=== PATIENT | female | born 1970 | race Caucasian/White ===

== ENCOUNTER 2018-12-28 21:54 | Inpatient (IN) ==
[2018-12-28] MEDS ORDERED: Sod Chloride 0.9% Inj 1,000 ML IV.SIG ONE (22:48)
[2018-12-28 23:12] LABS: Baso # (Auto) 0.1 th/mm3 (0.0-0.2); Eos # (Auto) 0.4 th/mm3 (0.0-0.4); Eos % (Auto) 4.9 % (0.0-4.0); Hematocrit 36.2 % (35.0-46.0); Hemoglobin 12.6 gm/dL (11.6-15.3); Lymph # (Auto) 2.2 th/mm3 (1.0-4.8); Mean Corpuscular HGB Conc 34.7 % (32.0-36.0); Mean Corpuscular Volume 97.8 fL (80.0-100.0); Mean Platelet Volume 8.6 fL (7.0-11.0); Mono # (Auto) 0.6 th/mm3 (0.0-0.9); Mono % (Auto) 7.5 % (0.0-8.0); Neut # (Auto) 4.2 th/mm3 (1.8-7.7); Neut % (Auto) 56.6 % (16.0-70.0); Platelet Count 210 th/mm3 (150-450); Red Cell Distribution Width 13.7 % (11.6-17.2); White Blood Count 7.4 th/mm3 (4.0-11.0)
[2018-12-28 23:36] LABS: Anion Gap 10 meq/L (5-15); Blood Urea Nitrogen 15 mg/dL (7-18); Calcium 7.1 mg/dL (8.5-10.1); Carbon Dioxide 23.6 meq/L (21.0-32.0); Chloride 114 meq/L (98-107); Glomerular Filtration Rate 84 mL/min (>89); Glucose,Random 157 mg/dL (74-106); Potassium 3.3 meq/L (3.5-5.1); Sodium 148 meq/L (136-145)
[2018-12-28] MEDS ORDERED: Calcium Gluconate Inj 1 GM in Sodium Chlor 0.9% Inj 90 ML IV.SIG ONE (23:37)
--- NOTE | 2018-12-28 23:37 | ED ---
HPI General Chief Complaint: Weakness Stated Complaint: SOB/Evac Time Seen by Provider: 12/28/18 22:21 Source: family (Mother and brother) Mode of arrival: ambulatory Limitations: other (Lethargic) History of Present Illness HPI narrative: 48-year-old female came to the emergency room with history of having 2 [id number] syncopal episodes. Patient appears to be lethargic although trying to give some history. Main history is provided by her mother and her brother who the patient is currently residing with. She has history of breast cancer and just finished her chemotherapy and radiation therapy. She is from [place] and came to live with her family 3 weeks back. Patient flew to [place]. Her family says that she was sitting and watching a movie with her brother. She was fine at that point. He had just stepped into his room and was there for 10 minutes when he heard her screaming for his name. He came out and noticed that she appeared extremely pale with her eyes almost rolling back. She was sitting on the couch with her head flopping back. Later on when patient started to get some consciousness she said that she felt like she was going to pass out and did pass out. After that she woke up and tried to sit up and then passed out again. Currently patient is complaining of chest pain on the left side especially when she takes a deep breath. She describes this pain radiating to her back. Patient is not on any blood thinners. She smokes marijuana. She does not have any cardiac history as per the mother. But her mother had a bypass surgery in 2011 when she was in her 70s. She was slightly hypotensive upon arrival. Patient says the chest pain started after her syncopal episode. No history of PE or DVT in the past. Patient had a stress test couple years back which was negative for Related Data Home Medications Medication Instructions Recorded Confirmed albuterol sulfate 2 inh INHALATION Q4-6H PRN 12/28/18 12/28/18 duloxetine [Cymbalta] 60 mg PO DAILY 12/28/18 12/28/18 levothyroxine 150 mcg PO DAILY 12/28/18 12/28/18 lisinopril 10 mg PO DAILY 12/28/18 12/28/18 pravastatin 40 mg PO DAILY 12/28/18 12/28/18 quetiapine [Seroquel] 25 mg PO DAILY 12/28/18 12/28/18 sotalol 80 mg PO DAILY 12/28/18 12/28/18 tamoxifen 20 mg PO DAILY 12/28/18 12/28/18 Allergies Allergy/AdvReac Type Severity Reaction Status Date / Time No Known Allergies Allergy Verified 12/28/18 22:48 Review of Systems ROS: all other systems reviewed are negative [facility] Medical History Medical History A-fib (Acute) Asthma (Acute) Breast cancer (Acute) Social History Social History Substance History: Active Abuse Second Hand Smoke Exposure: No Smoking Status: Never smoker Tobacco Type: Cigarettes How Often Do You Have a Drink Containing Alcohol: Never Recent Travel in [facility] within the Last 8 Weeks: No Recent Out of Country Travel within the Last 8 Weeks: No Substance Abuse Detail Marijuana: Substance Use Type Other:: MARIJUANA Immunization History Tetanus Immunization: >5 Years Exam Narrative Exam Narrative: GENERAL: Lethargic but trying to answer questions, moderate distress SKIN: Focused skin assessment warm/dry. HEAD: Atraumatic. Normocephalic. EYES: Pupils equal and round. No scleral icterus. No injection or drainage. ENT: No nasal bleeding or discharge. Mucous membranes pink and moist. NECK: Trachea midline. No JVD. CARDIOVASCULAR: Regular rate and rhythm. No murmur appreciated. RESPIRATORY: No accessory muscle use. Clear to auscultation. Breath sounds equal bilaterally. GASTROINTESTINAL: Abdomen soft, non-tender, nondistended. Hepatic and splenic margins not palpable. MUSCULOSKELETAL: No obvious deformities. No clubbing. No cyanosis. No edema. NEUROLOGICAL: GCS of 14. No obvious cranial nerve deficits. Motor grossly within normal limits. Normal speech. PSYCHIATRIC: Appropriate mood and affect; insight and judgment normal. Course Initial Documented Vital Signs Temperature 98.6 F 12/28/18 22:13 Pulse Rate 57 L 12/28/18 22:13 Respiratory Rate 20 12/28/18 22:13 Blood Pressure 110/53 L 12/28/18 22:13 Pulse Oximetry 98 12/28/18 22:13 Last Documented Vital Signs Temperature 98.1 F 12/30/18 08:45 Pulse Rate 63 12/30/18 11:25 Respiratory Rate 14 12/30/18 11:25 Blood Pressure 133/84 12/30/18 08:45 Pulse Oximetry 98 12/30/18 08:45 Medical Decision Making [facility] Narrative Medical decision making narrative: 11:35 PM given her history patient is moderate to high risk factor for PE mostly based on my suspicion. Awaiting for blood test result. Have ordered a CTA pulmonary angiogram. If patient is negative for PE she will be admitted for ACS/syncope. 12:22 AM blood test shows hypocalcemia and hypokalemia. Have ordered for replacement. CT head and CTA pulmonary was negative. Patient will also receive from IV fluid. I would like to admit her for chest pain, syncope. Awaiting for the hospitalist to call back. Medical Screen Exam Complete: Yes Emergency Medical Condition: Yes Lab Data Result diagrams: 12/30/18 07:10 12/30/18 07:10 Lab Results 12/28/18 12/28/18 12/28/18 Range/Units 23:00 23:00 23:00 WBC 7.4 (4.0-11.0) th/mm3 RBC 3.70 L (4.00-5.30) mil/mm3 Hgb 12.6 (11.6-15.3) gm/dL Hct 36.2 (35.0-46.0) % MCV 97.8 (80.0-100.0) fL MCH 34.0 (27.0-34.0) pg MCHC 34.7 (32.0-36.0) % RDW 13.7 (11.6-17.2) % Plt Count 210 (150-450) th/mm3 MPV 8.6 (7.0-11.0) fL Neut % (Auto) 56.6 (16.0-70.0) % Lymph % (Auto) 30.0 (9.0-44.0) % [place] % (Auto) 7.5 (0.0-8.0) % Eos % (Auto) 4.9 H (0.0-4.0) % Baso % (Auto) 1.0 (0.0-2.0) % Neut # (Auto) 4.2 (1.8-7.7) th/mm3 Lymph # (Auto) 2.2 (1.0-4.8) th/mm3 [place] # (Auto) 0.6 (0.0-0.9) th/mm3 Eos # (Auto) 0.4 (0.0-0.4) th/mm3 Baso # (Auto) 0.1 (0.0-0.2) th/mm3 WBC Differential . Differential Comment Auto diff final Sodium 148 H (136-145) meq/L Potassium 3.3 L (3.5-5.1) meq/L Chloride 114 H (98-107) meq/L Carbon Dioxide 23.6 (21.0-32.0) meq/L Anion Gap 10 (5-15) meq/L BUN 15 (7-18) mg/dL Creatinine 0.74 (0.50-1.00) mg/dL Estimated GFR 84 L (>89) mL/min Random Glucose 157 H (74-106) mg/dL Calcium 7.1 L* (8.5-10.1) mg/dL Calcium Adj for Albumin 8.0 L (8.5-10.1) mg/dL Magnesium 1.7 (1.5-2.5) mg/dL Total Bilirubin (0.2-1.0) mg/dL AST (15-37) U/L ALT (10-53) U/L Alkaline Phosphatase (45-117) U/L Troponin I Less than 0.02 L (0.02-0.05) ng/mL Total Protein (6.4-8.2) g/dL Albumin 2.9 L (3.4-5.0) g/dL TSH (0.358-3.740) uIU/mL Urine Color (Yellw/Straw) Urine Clarity (Clear) Urine pH (5.0-8.5) Ur Specific [place] (1.002-1.035) Urine Protein (Neg-Trace) mg/dL Urine Glucose (UA) (Negative) mg/dL Urine Ketones (Negative) mg/dL Urine Occult Blood (Negative) Urine Nitrate (Negative) Urine Bilirubin (Negative) Urine Urobilinogen (Less than 2) mg/dL Ur Leukocyte Esterase (Negative) Urine RBC (0-3) /hpf Urine WBC (0-5) /hpf Ur Squamous Epith Cells (0-5) /hpf Urine Bacteria (None) /hpf Hyaline Casts (0-3) /lpf Urine Mucus (Occasional) /lpf Micro UA Comment Ur Microscopic Review Urine Culture Comments Urine Opiates Screen (Neg) Ur Barbiturates Screen (Neg) Ur Amphetamines Screen (Neg) U Benzodiazepines Scrn (Neg) Urine Cocaine Screen (Neg) U Cannabinoids Screen (Neg) 12/29/18 12/29/18 12/29/18 Range/Units 01:24 01:24 06:40 WBC (4.0-11.0) th/mm3 RBC (4.00-5.30) mil/mm3 Hgb (11.6-15.3) gm/dL Hct (35.0-46.0) % MCV (80.0-100.0) fL MCH (27.0-34.0) pg MCHC (32.0-36.0) % RDW (11.6-17.2) % Plt Count (150-450) th/mm3 MPV (7.0-11.0) fL Neut % (Auto) (16.0-70.0) % Lymph % (Auto) (9.0-44.0) % [place] % (Auto) (0.0-8.0) % Eos % (Auto) (0.0-4.0) % Baso % (Auto) (0.0-2.0) % Neut # (Auto) (1.8-7.7) th/mm3 Lymph # (Auto) (1.0-4.8) th/mm3 [place] # (Auto) (0.0-0.9) th/mm3 Eos # (Auto) (0.0-0.4) th/mm3 Baso # (Auto) (0.0-0.2) th/mm3 WBC Differential Differential Comment Sodium 148 H (136-145) meq/L Potassium 4.4 D (3.5-5.1) meq/L Chloride 118 H (98-107) meq/L Carbon Dioxide 21.7 (21.0-32.0) meq/L Anion Gap 8 (5-15) meq/L BUN 13 (7-18) mg/dL Creatinine 0.60 (0.50-1.00) mg/dL Estimated GFR Greater than 89 (>89) mL/min Random Glucose 97 (74-106) mg/dL Calcium 7.6 L (8.5-10.1) mg/dL Calcium Adj for Albumin (8.5-10.1) mg/dL Magnesium (1.5-2.5) mg/dL Total Bilirubin 0.2 (0.2-1.0) mg/dL AST 11 L (15-37) U/L ALT 18 (10-53) U/L Alkaline Phosphatase 52 (45-117) U/L Troponin I Less than 0.02 L (0.02-0.05) ng/mL Total Protein 5.4 L (6.4-8.2) g/dL Albumin 2.7 L (3.4-5.0) g/dL TSH (0.358-3.740) uIU/mL Urine Color Yellow (Yellw/Straw) Urine Clarity Clear (Clear) Urine pH 6.0 (5.0-8.5) Ur Specific [place] 1.015 (1.002-1.035) Urine Protein Negative (Neg-Trace) mg/dL Urine Glucose (UA) Negative (Negative) mg/dL Urine Ketones Negative (Negative) mg/dL Urine Occult Blood Negative (Negative) Urine Nitrate Negative (Negative) Urine Bilirubin Negative (Negative) Urine Urobilinogen Less than 2 (Less than 2) mg/dL Ur Leukocyte Esterase Negative (Negative) Urine RBC Less than 1 (0-3) /hpf Urine WBC 1 (0-5) /hpf Ur Squamous Epith Cells 1 (0-5) /hpf Urine Bacteria Rare H (None) /hpf Hyaline Casts 4 (0-3) /lpf Urine Mucus Few H (Occasional) /lpf Micro UA Comment Culture not ind Ur Microscopic Review Not Reportable Urine Culture Comments Culture not ind Urine Opiates Screen Neg (Neg) Ur Barbiturates Screen Neg (Neg) Ur Amphetamines Screen Neg (Neg) U Benzodiazepines Scrn Neg (Neg) Urine Cocaine Screen Neg (Neg) U Cannabinoids Screen Pos H (Neg) 12/29/18 12/29/18 12/30/18 Range/Units 06:40 11:54 07:10 WBC 5.5 (4.0-11.0) th/mm3 RBC 3.81 L (4.00-5.30) mil/mm3 Hgb 13.1 (11.6-15.3) gm/dL Hct 38.5 (35.0-46.0) % MCV 101.0 H (80.0-100.0) fL MCH 34.5 H (27.0-34.0) pg MCHC 34.1 (32.0-36.0) % RDW 14.1 (11.6-17.2) % Plt Count 214 (150-450) th/mm3 MPV 8.2 (7.0-11.0) fL Neut % (Auto) 76.5 H (16.0-70.0) % Lymph % (Auto) 17.0 (9.0-44.0) % [place] % (Auto) 5.3 (0.0-8.0) % Eos % (Auto) 0.4 (0.0-4.0) % Baso % (Auto) 0.8 (0.0-2.0) % Neut # (Auto) 4.2 (1.8-7.7) th/mm3 Lymph # (Auto) 0.9 L (1.0-4.8) th/mm3 [place] # (Auto) 0.3 (0.0-0.9) th/mm3 Eos # (Auto) 0.0 (0.0-0.4) th/mm3 Baso # (Auto) 0.0 (0.0-0.2) th/mm3 WBC Differential . Differential Comment Auto diff final Sodium (136-145) meq/L Potassium (3.5-5.1) meq/L Chloride (98-107) meq/L Carbon Dioxide (21.0-32.0) meq/L Anion Gap (5-15) meq/L BUN (7-18) mg/dL Creatinine (0.50-1.00) mg/dL Estimated GFR (>89) mL/min Random Glucose (74-106) mg/dL Calcium 7.6 L (8.5-10.1) mg/dL Calcium Adj for Albumin 8.6 (8.5-10.1) mg/dL Magnesium (1.5-2.5) mg/dL Total Bilirubin (0.2-1.0) mg/dL AST (15-37) U/L ALT (10-53) U/L Alkaline Phosphatase (45-117) U/L Troponin I Less than 0.02 L (0.02-0.05) ng/mL Total Protein (6.4-8.2) g/dL Albumin 2.7 L (3.4-5.0) g/dL TSH 0.698 (0.358-3.740) uIU/mL Urine Color (Yellw/Straw) Urine Clarity (Clear) Urine pH (5.0-8.5) Ur Specific [place] (1.002-1.035) Urine Protein (Neg-Trace) mg/dL Urine Glucose (UA) (Negative) mg/dL Urine Ketones (Negative) mg/dL Urine Occult Blood (Negative) Urine Nitrate (Negative) Urine Bilirubin (Negative) Urine Urobilinogen (Less than 2) mg/dL Ur Leukocyte Esterase (Negative) Urine RBC (0-3) /hpf Urine WBC (0-5) /hpf Ur Squamous Epith Cells (0-5) /hpf Urine Bacteria (None) /hpf Hyaline Casts (0-3) /lpf Urine Mucus (Occasional) /lpf Micro UA Comment Ur Microscopic Review Urine Culture Comments Urine Opiates Screen (Neg) Ur Barbiturates Screen (Neg) Ur Amphetamines Screen (Neg) U Benzodiazepines Scrn (Neg) Urine Cocaine Screen (Neg) U Cannabinoids Screen (Neg) 12/30/18 Range/Units 07:10 WBC (4.0-11.0) th/mm3 RBC (4.00-5.30) mil/mm3 Hgb (11.6-15.3) gm/dL Hct (35.0-46.0) % MCV (80.0-100.0) fL MCH (27.0-34.0) pg MCHC (32.0-36.0) % RDW (11.6-17.2) % Plt Count (150-450) th/mm3 MPV (7.0-11.0) fL Neut % (Auto) (16.0-70.0) % Lymph % (Auto) (9.0-44.0) % [place] % (Auto) (0.0-8.0) % Eos % (Auto) (0.0-4.0) % Baso % (Auto) (0.0-2.0) % Neut # (Auto) (1.8-7.7) th/mm3 Lymph # (Auto) (1.0-4.8) th/mm3 [place] # (Auto) (0.0-0.9) th/mm3 Eos # (Auto) (0.0-0.4) th/mm3 Baso # (Auto) (0.0-0.2) th/mm3 WBC Differential Differential Comment Sodium 144 (136-145) meq/L Potassium 4.0 (3.5-5.1) meq/L Chloride 113 H (98-107) meq/L Carbon Dioxide 23.2 (21.0-32.0) meq/L Anion Gap 8 (5-15) meq/L BUN 8 (7-18) mg/dL Creatinine 0.52 (0.50-1.00) mg/dL Estimated GFR Greater than 89 (>89) mL/min Random Glucose 127 H (74-106) mg/dL Calcium 8.3 L (8.5-10.1) mg/dL Calcium Adj for Albumin (8.5-10.1) mg/dL Magnesium (1.5-2.5) mg/dL Total Bilirubin 0.2 (0.2-1.0) mg/dL AST 19 (15-37) U/L ALT 18 (10-53) U/L Alkaline Phosphatase 59 (45-117) U/L Troponin I (0.02-0.05) ng/mL Total Protein 6.3 L D (6.4-8.2) g/dL Albumin 3.1 L (3.4-5.0) g/dL TSH (0.358-3.740) uIU/mL Urine Color (Yellw/Straw) Urine Clarity (Clear) Urine pH (5.0-8.5) Ur Specific [place] (1.002-1.035) Urine Protein (Neg-Trace) mg/dL Urine Glucose (UA) (Negative) mg/dL Urine Ketones (Negative) mg/dL Urine Occult Blood (Negative) Urine Nitrate (Negative) Urine Bilirubin (Negative) Urine Urobilinogen (Less than 2) mg/dL Ur Leukocyte Esterase (Negative) Urine RBC (0-3) /hpf Urine WBC (0-5) /hpf Ur Squamous Epith Cells (0-5) /hpf Urine Bacteria (None) /hpf Hyaline Casts (0-3) /lpf Urine Mucus (Occasional) /lpf Micro UA Comment Ur Microscopic Review Urine Culture Comments Urine Opiates Screen (Neg) Ur Barbiturates Screen (Neg) Ur Amphetamines Screen (Neg) U Benzodiazepines Scrn (Neg) Urine Cocaine Screen (Neg) U Cannabinoids Screen (Neg) Imaging Data Radiologist's impression: Chest CTA 12/28/18 22:48 CONCLUSION: 1. No acute intrathoracic abnormality. 2. Prior granulomatous disease. Head CT 12/28/18 22:48 CONCLUSION: 1. Negative CT Head non contrast. . . Carotid Doppler Study 12/29/18 00:00 CONCLUSION: 1. Right Internal Carotid Artery: No significant stenosis or atherosclerotic plaque is visualized. 2. Left Internal Carotid Artery: No significant stenosis or atherosclerotic plaque is visualized. ECG Data Attestation: I personally reviewed and interpreted this ECG as follows: Interpretation: Twelve-lead EKG was reviewed by me. Normal sinus rhythm, normal axis, bradycardia, anterior lateral ST depression and T wave inversion. Heart rate of 48 bpm. Discharge Plan Discharge Disposition Patient Disposition: ED Admit(ED Internal Use Only) Discharge Condition Condition: Stable Discharge Order Discharge Orders: Discharge Order (Routine); Ordered 12/30/18 Ordered By: Didi Ku ED Use Only Admit Order (Routine); Ordered 12/29/18 Ordered By: Jas Warren Discharge Details Anticipated Discharge Date: 12/30/18 Physicians Team ED Provider: Jas Warren Primary Care Provider: Primary Care Georgiana Mcleod Attending Provider: Didi Ku Status ED Status: Left Department Discharge Information Discharge Date/Time: 12/29/18 04:07
[2018-12-28 23:51] LABS: Albumin 2.9 g/dL (3.4-5.0)
--- NOTE | 2018-12-29 00:15 | CT ---
EXAM DATE: 12/29/2018 12:10 AM EST AGE/SEX: 48 years / Female INDICATIONS: Syncope. CLINICAL DATA: This is the patient's initial encounter. Patient reports that signs and symptoms have been present for 1 day and indicates a pain score of 0/10. MEDICAL/SURGICAL HISTORY: Carcinoma, breast. Asthma. Atrial fibrillation None. RADIATION DOSE: 56.35 CTDI (mGy) COMPARISON: No prior exams available for comparison. TECHNIQUE: CT of the head without contrast. Using automated exposure control and adjustment of the mA and/or kV according to patient size, radiation dose was kept as low as reasonably achievable to ob tain optimal diagnostic quality images. DICOM format image data is available electronically for revi ew and comparison. FINDINGS: Cerebrum: The ventricles are normal for age. No evidence of midline shift, mass lesion, hemorrhage or acute infarction. No extraaxial fluid collections are seen. Posterior Fossa: The cerebellum and brainstem are intact. The 4th ventricle is midline. The cerebe llopontine angle is unremarkable. Extracranial: The visualized portion of the orbits is intact. Skull: The calvaria is intact. No evidence of skull fracture. CONCLUSION: 1. Negative CT Head non contrast. . . Electronically signed by: Crescencio Epps MD Board Certified Radiologist 12/29/2018 12:14 AM EST
--- NOTE | 2018-12-29 00:18 | CT ---
EXAM DATE: 12/29/2018 12:10 AM EST AGE/SEX: 48 years / Female INDICATIONS: Shortness of breath; rule out pulmonary embolus. CLINICAL DATA: This is the patient's initial encounter. Patient reports that signs and symptoms have been present for 1 day and indicates a pain score of 0/10. MEDICAL/SURGICAL HISTORY: Carcinoma, breast. Asthma. Atrial fibrillation None. RADIATION DOSE: 10.45 CTDI (mGy) COMPARISON: No prior exams available for comparison. TECHNIQUE: Volumetric scanning was performed using a multi-row detector CT scanner during bolus infu sin of 72 ml Omnipaque 350 (iohexol) nonionic water-soluble contrast as a single exam dose. The diane a was post processed with a variety of visualization algorithms including full volume maximum intensi ty projection and sliding thin slab reformation. Using automated exposure control and adjustment of t he mA and/or kV according to patient size, radiation dose was kept as low as reasonably achievable to obtain optimal diagnostic quality images. DICOM format image data is available electronically for r eview and comparison. FINDINGS: Pulmonary Arteries: No filling defects are seen in the pulmonary arteries out to the subsegmental ve ssels. The left and right pulmonary arteries are normal in diameter. Lung: Area of scarring involving the left upper lobe anteriorly. There is associated focal bronchiec tasis within this area as well. No acute infiltrates. No other bronchiectasis. No mass. Calcified gra nulomas involving the left lower lobe. Minimal atelectasis posteriorly within the right base. Effusion: None. Mediastinum: No evidence of mediastinal or hilar adenopathy. Other: The axilla is unremarkable. CONCLUSION: 1. No acute intrathoracic abnormality. 2. Prior granulomatous disease. Electronically signed by: Crescencio Epps MD Board Certified Radiologist 12/29/2018 12:17 AM EST
[2018-12-29] MEDS ORDERED: Sod Chloride 0.9% Inj 1,000 ML IV.SIG SCH (00:30)
[2018-12-29] MEDS ORDERED: Ketorolac Inj 30 MG/ML (IVP) Vial IV.PUSH ONE (00:32)
[2018-12-29] MEDS ORDERED: Bisacodyl 10 MG Supp RECTAL PRN (01:01)
[2018-12-29] MEDS ORDERED: Acetaminophen 325 MG Tablet PO PRN (01:01)
[2018-12-29] MEDS ORDERED: Sod Chloride 0.9% Inj 1,000 ML IV.CONT SCH (01:15)
[2018-12-29 01:42] LABS: Bacteria,Urine Rare /hpf; Bilirubin,Urine Negative (Negative); Clarity,Urine Clear (Clear); Color,Urine Yellow (Yellw/Straw); Glucose,Urine (UA) Negative (Negative); Hyaline Casts,Urine 4 /lpf (0-3); Leukocyte Esterase,Urine Negative (Negative); Mucus,Urine Few /lpf (Occasional); Nitrite,Urine Negative (Negative); Specific Gravity,Urine 1.015 (1.002-1.035); Squamous Epithelial Cell,Urine 1 /hpf (0-5)
[2018-12-29 01:47] LABS: Amphetamine Screen,Urine Neg (Neg); Barbiturate Screen,Urine Neg (Neg); Cannabinoid Screen,Urine Pos (Neg); Cocaine Screen,Urine Neg (Neg)
[2018-12-29 01:49] LABS: Opiate Screen,Urine Neg (Neg)
--- NOTE | 2018-12-29 02:47 | P.HPIM ---
History of Present Illness Primary Care Physician: No Primary Care Physician History of Present Illness: This is a 48-year-old female with a PMH of HTN, Hyperlipidemia, Anxiety, Hypothyroidism and Breast CA who was brought to the ER after syncope x2. Pt initially arrived lethargic, however now back to baseline. States she has Stage IB Breast CA, recently completed Chemo/ Radiation in [place] and moved here to live w/ family approx 3wks ago. Today had episode of lightheadedness followed by syncope x2 witnessed by family. Also c/ o chest pain, substernal, severe, 910, w/ radiation to back. On arrival, BP 110/53, HR 57, O2 sat 98% on RA, Afebrile. CBC unremarkable. Na 148. K+ 3.3. GFR 84. Calcium 7.1. Troponin negative. UA negative for UTI. UDS positive for Marijuana. CT Head with no acute findings. CTA Chest negative for PE. Diagnosis (1) Syncope: (2) Hypocalcemia: (3) Hypokalemia: (4) Breast CA: (5) Chest pain: Inpatient Certification Inpatient Certification: I certify that the inpatient services were ordered in accordance with Medicare regulations governing the order. This includes certification that hospital inpatient services are reasonable and necessary and in the case of services not specified as inpatient-only under 42 CFR 419.22(n), that they are appropriately provided as inpatient services in accordance to with the 2-midnight benchmark under 43 CFR 412.3(e) Estimated Total Length of Stay (Days): 2 Plans for Post Hospital Care: Not yet determined Review of Systems PAST FAMILY HISTORY: Reviewed. No h/o DM or CAD Review of Systems: all other systems reviewed are negative FOR[facility]LY [facility] Medical History Medical History A-fib (Acute) Asthma (Acute) Breast cancer (Acute) Social History Social History Substance History: Active Abuse Smoking Status: Former smoker Tobacco Type: Cigarettes How Often Do You Have a Drink Containing Alcohol: Monthly or less Recent Travel in [facility] within the Last 8 Weeks: No Recent Out of Country Travel within the Last 8 Weeks: No Substance Abuse Detail Marijuana: Substance Use Type Other:: MARIJUANA Immunization History Tetanus Immunization: >5 Years Medications and Allergies Allergies Allergy/AdvReac Type Severity Reaction Status Date / Time No Known Allergies Allergy Verified 12/28/18 22:48 Home Medications Medication Instructions Recorded Confirmed Type albuterol sulfate 2 inh INHALATION Q4-6H PRN 12/28/18 12/28/18 History duloxetine [Cymbalta] 60 mg PO DAILY 12/28/18 12/28/18 History levothyroxine 150 mcg PO DAILY 12/28/18 12/28/18 History lisinopril 10 mg PO DAILY 12/28/18 12/28/18 History pravastatin 40 mg PO DAILY 12/28/18 12/28/18 History quetiapine [Seroquel] 25 mg PO DAILY 12/28/18 12/28/18 History sotalol 80 mg PO DAILY 12/28/18 12/28/18 History tamoxifen 20 mg PO DAILY 12/28/18 12/28/18 History Active Medications: Active Medications Acetaminophen (Tylenol) 650 mg PO Q4H PRN PRN Reason: Temp > 100.4 Al Hydroxide/Mg Hydroxide (Milk Of Magnesia Liq) 30 ml PO Q12H PRN PRN Reason: Mild Constipation Bisacodyl (Dulcolax Supp) 10 mg RECTAL DAILY PRN PRN Reason: SEVERE CONSITIPATION Duloxetine HCl (Cymbalta) 60 mg PO DAILY [facility] Sodium Chloride (Ns Inj) 1,000 mls @ 100 mls/hr IV.CONT .Q10H [facility] Last Admin: 12/29/18 01:58 Dose: 100 mls/hr Lactulose (Lactulose Liq) 30 ml PO DAILY PRN PRN Reason: SEVERE CONSITIPATION Levothyroxine Sodium (Synthroid) 150 mcg PO DAILY@0600 [facility] Morphine Sulfate (Morphine Inj) 2 mg IV.PUSH Q4H PRN PRN Reason: PAIN SCALE 6 TO 10 Ondansetron HCl (Zofran Inj) 4 mg IV.PUSH Q6H PRN PRN Reason: NAUSEA OR VOMITING Pravastatin Sodium (Pravachol) 40 mg PO DAILY [facility] Quetiapine Fumarate (Seroquel) 25 mg PO DAILY [facility] Senna/Docusate Sodium (Joi-Colace) 1 tab PO BID [facility] Sennosides (Senokot) 17.2 mg PO Q12H PRN PRN Reason: Moderate Constipation Sodium Chloride (Ns Flush) 2 ml IV.FLUSH BID [facility] Sodium Chloride (Ns Flush) 2 ml IV.FLUSH PRN PRN PRN Reason: FLUSH AFTER USING IV ACCESS Sotalol HCl (Betapace) 80 mg PO DAILY [facility] Tamoxifen Citrate (Nolvadex) 20 mg PO DAILY [facility] Physical Exam Vital signs: Vital Signs 12/28/18 22:13 12/29/18 01:20 12/29/18 02:02 Temperature 98.6 F Pulse Rate 57 L 62 60 Respiratory Rate 20 14 14 Blood Pressure 110/53 L 120/76 127/76 Pulse Oximetry 98 98 98 Intake & Output 12/28/18 12/28/18 12/29/18 06:59 18:59 06:59 Intake Total 2099 Balance 2099 Weight 90.718 kg Intake: IV 2099 Calcium Gluconate Inj 1 GM In 100 / 100 NS Inj 90 ML @ 100 mls/hr IV. SIG ONCE ONE Rx#:[id number] NS Inj 1,000 ML @ 1000 mls/hr 1999 IV.SIG BOLUS CARMELA Rx#:[id number] Narrative: PE: GENERAL: Middle-aged white female in mild distress, tearful, anxious SKIN: Focused skin assessment warm and dry. +sunburn HEENT: PERRLA, EOMI. No scleral icterus or conjunctival pallor. No lid lag or facial droop. CARDIOVASCULAR: Regular rate and rhythm. No obvious murmurs to auscultation. No chest tenderness to palpation. RESPIRATORY: No obvious rhonchi or wheezing. Clear to auscultation. Breath sounds equal bilaterally. GASTROINTESTINAL: Abdomen soft, non-tender, nondistended. BS normal. MUSCULOSKELETAL: Extremities without clubbing, cyanosis, or edema. No obvious deformities. NEUROLOGICAL: Awake, alert and oriented x4. No focal neurologic deficits. Moving both upper and lower extremities spontaneously. PSYCHIATRIC: Appropriate mood and affect. Insight and judgment normal. Results Labs CBC & Chem 7: 12/28/18 23:00 12/28/18 23:00 Imaging Impressions Chest CTA 12/28/18 22:48 CONCLUSION: 1. No acute intrathoracic abnormality. 2. Prior granulomatous disease. Head CT 12/28/18 22:48 CONCLUSION: 1. Negative CT Head non contrast. . . Caprini VTE Risk Assessment Caprini VTE Risk Assessment: No/Low Risk (score <= 1) Caprini Risk Assessment Model: Point Value = 1 Point Value = 2 Point Value = 3 Point Value = 5 Age 41-60 Minor surgery BMI > 25 kg/m2 Swollen legs Varicose veins or History of unexplained or recurrent spontaneous Oral contraceptives or hormone replacement Sepsis (< 1 month) Serious lung disease, including pneumonia (< 1 month) Abnormal pulmonary function Acute myocardial infarction Congestive heart failure (< 1 month) History of inflammatory bowel disease Medical patient at bed rest Age 61-74 Arthroscopic surgery Major open surgery (> 45 min) Laparoscopic surgery (> 45 min) Malignancy Confined to bed (> 72 hours) Immobilizing plaster cast Central venous access Age >= 75 History of VTE Family history of VTE Factor V Leiden Prothrombin [id number] Lupus anticoagulant Anticardiolipin antibodies Elevated serum homocysteine Heparin-induced thrombocytopenia Other congenital or acquired thrombophilia Stroke (< 1 month) Elective arthroplasty Hip, pelvis, or leg fracture Acute spinal cord injury (< 1 month) Prophylaxis Regimen: Total Risk Factor Score Risk Level Prophylaxis Regimen 0-1 Low Early ambulation 2 Moderate Order ONE of the following: *Sequential Compression Device (SCD) *Heparin 5000 units SQ BID 3-4 Higher Order ONE of the following medications: *Heparin 5000 units SQ TID *Enoxaparin/Lovenox 40 mg SQ daily (WT < 150 kg, CrCl > 30 mL/min) *Enoxaparin/Lovenox 30 mg SQ daily (WT < 150 kg, CrCl > 10-29 mL/min) *Enoxaparin/Lovenox 30 mg SQ BID (WT < 150 kg, CrCl > 30 mL/min) AND/OR *Sequential Compression Device (SCD) 5 or more Highest Order ONE of the following medications: *Heparin 5000 units SQ TID (Preferred with Epidurals) *Enoxaparin/Lovenox 40 mg SQ daily (WT < 150 kg, CrCl > 30 mL/min) *Enoxaparin/Lovenox 30 mg SQ daily (WT < 150 kg, CrCl > 10-29 mL/min) *Enoxaparin/Lovenox 30 mg SQ BID (WT < 150 kg, CrCl > 30 mL/min) AND *Sequential Compression Device (SCD) Assessment and Plan (1) Syncope: Code(s): R55 - Syncope and collapse Status: Acute (2) Hypocalcemia: Code(s): E83.51 - Hypocalcemia Status: Acute (3) Hypokalemia: Code(s): E87.6 - Hypokalemia Status: Acute (4) Breast CA: Code(s): C50.919 - Malignant neoplasm of unspecified site of unspecified female breast Status: Acute (5) Chest pain: Code(s): R07.9 - Chest pain, unspecified Status: Acute Plan A/P: 1. Syncope: likely vasovagal event, BP 60/44 per EMS s/p IVF w/ improvement, admit for further eval, telemetry, initial trop negative, check serial cardiac enzymes to eval for ischemia, check Echo to eval for valvular abnormality/ cardiomyopathy w/ previous radiation for Breast Ca, CTA Chest negative for PE. IVF for hydration. 2. Chest Pain: c/o chest pain w/ radiation to back, CTA chest negative for PE , trop negative, check cardiac enzymes, analgesics/antiemetics as needed. 3. Hypocalcemia: w/ associated weakness, Ca 7.1, s/p replacement, will recheck and replace as needed. 4. Hypokalemia: K+ 3.3, s/p replacement, will recheck and give additional replacement as needed. 5. Breast CA: Stage IB, s/p chemo/radiation in [place], continue home Tamoxifen. 6. DVT Prophylaxis: SCD/Teds 7. Social work for d/c planning as needed 8. Case discussed w/ ER physician at length, labs/records/imaging reviewed by me.
[2018-12-29] MEDS: Morphine Inj 4 MG/ML Vial IV.PUSH PRN ×5 (03:40→21:42)
[2018-12-29] MEDS: QUEtiapine 25 MG Tablet PO SCH ×2 (03:40→09:32)
[2018-12-29] MEDS: Levothyroxine 150 MCG Tablet PO SCH (05:57)
[2018-12-29] MEDS ORDERED: QUEtiapine 25 MG Tablet PO SCH (09:00)
[2018-12-29 09:04] LABS: Alanine Aminotransferase 18 U/L (10-53); Albumin 2.7 g/dL (3.4-5.0); Alkaline Phosphatase 52 U/L (45-117); Anion Gap 8 meq/L (5-15); Aspartate Aminotransferase 11 U/L (15-37); Blood Urea Nitrogen 13 mg/dL (7-18); Calcium 7.6 mg/dL (8.5-10.1); Carbon Dioxide 21.7 meq/L (21.0-32.0); Chloride 118 meq/L (98-107); Glomerular Filtration Rate Greater Than 89 mL/min (>89); Glucose,Random 97 mg/dL (74-106); Potassium 4.4 meq/L (3.5-5.1); Sodium 148 meq/L (136-145); Total Protein 5.4 g/dL (6.4-8.2)
[2018-12-29 09:30] LABS: Albumin 2.7 g/dL (3.4-5.0); Calcium 7.6 mg/dL (8.5-10.1); Calcium-Albumin Corrected 8.6 mg/dL (8.5-10.1)
[2018-12-29] MEDS: Duloxetine 60 MG DR Capsule PO SCH (09:31)
[2018-12-29] MEDS: Senna/Docusate Sodium 8.6/50 MG Tablet PO SCH ×2 (09:32→20:32)
--- NOTE | 2018-12-29 09:45 | P.PNIM ---
Subjective Interval history: patietn awake and alert denies any chest pains or shortness of breath- on exam though with some wheezing no cough appearsanxious- stress out - found out yared of 20 years has been cheating on her but patient states [employer] [facility] denies any diarrhea telemetry- in SR history of HAD- - previous asmoker quit 3 years ago- takes albuterol MDI 2 puss prn not on maintenance steroids hsitory of hypothyroidism , hyperlipidemia, hypertension on Seroquel 50 mg dbid, Pravastatin 40 mg hs, Lisinorpil, sotalol 80 mg daily, synthroid we will restart meds active marijuana use- "to calm my nerves" Physical Exam Vital signs: Vital Signs 12/28/18 22:13 12/29/18 01:20 12/29/18 02:02 Temperature 98.6 F Pulse Rate 57 L 62 60 Respiratory Rate 20 14 14 Blood Pressure 110/53 L 120/76 127/76 Pulse Oximetry 98 98 98 12/29/18 03:35 12/29/18 04:00 12/29/18 08:00 Temperature 95.2 F L 98.7 F Pulse Rate 57 L 55 L 70 Respiratory Rate 20 20 Blood Pressure 112/64 129/74 Pulse Oximetry 95 95 Intake & Output 12/28/18 12/29/18 12/29/18 18:59 06:59 18:59 Intake Total 2099 Balance 2099 Weight 105.9 kg Intake: IV 2099 Calcium Gluconate Inj 1 GM In 100 / 100 NS Inj 90 ML @ 100 mls/hr IV. SIG ONCE ONE Rx#:[id number] NS Inj 1,000 ML @ 1000 mls/hr 1999 IV.SIG BOLUS CARMELA Rx#:[id number] Other: Weight On Admission 105.9 kg Narrative: awake and alert in SR- good sats at room air, appears ancious anicteric neck supple throat no exudates lungs- few inspiratory wheez,es + rhnchis regular rhythm' abdome-softmnontender extrmeites jay ana Results Labs CBC & Chem 7: 12/30/18 07:10 12/30/18 07:10 Imaging Imaging: Impressions Chest CTA 12/28/18 22:48 CONCLUSION: 1. No acute intrathoracic abnormality. 2. Prior granulomatous disease. Head CT 12/28/18 22:48 CONCLUSION: 1. Negative CT Head non contrast. . . Assessment and Plan (1) Syncope: Code(s): R55 - Syncope and collapse Status: Acute (2) Hypocalcemia: Code(s): E83.51 - Hypocalcemia Status: Acute (3) Hypokalemia: Code(s): E87.6 - Hypokalemia Status: Acute (4) Breast CA: Code(s): C50.919 - Malignant neoplasm of unspecified site of unspecified female breast Status: Acute (5) Chest pain: Code(s): R07.9 - Chest pain, unspecified Status: Acute Plan 48 years old female patient states witnessed syncope x 2 Syncope: likely vasovagal event, BP 60/44 per EMS s/p IVF w/ improvement, admit for further eval, telemetry, initial trop negative, check serial cardiac enzymes to eval for ischemia, check Echo to eval for valvular abnormality/ cardiomyopathy w/ previous radiation for Breast Ca, CTA Chest negative for PE. IVF for hydration. check c arotid US Chest Pain: c/o chest pain w/ radiation to back, CTA chest negative for PE, trop negative, check cardiac enzymes, analgesics/antiemetics as needed. History of hypertension History of hyperlipdemia - reporiccible on exam. EKG reviewed- no acute changes, - some psych component -restart home meds - Sotalol, Lisnopril Hypernatremia- start D5W 42 cc/hr Bipolar disorder - continue on her Seroquel -foud out cheating on her- denies any suicidal ideations -states good family support Hypocalcemia: w/ associated weakness, Ca 7.1, s/p replacement, will recheck and replace as needed. Hypokalemia: improved Breast CA: Stage IB, s/p chemo/radiation in [place], continue home Tamoxifen. HAD- provoke by emotional distress likelu -some wheezes on exam - denies smokimg- admits to marijuana use - short course po Prednisone - start MDIs DVT Prophylaxis: SCD/Teds up and ambulate Progress Note: Quality VTE Deep Vein Thrombosis/Pulmonary Embolism Present on Admission: No
[2018-12-29] MEDS: Dextrose 5% in Water Inj 1,000 ML IV.CONT SCH (11:05)
--- NOTE | 2018-12-29 11:16 | ECHRPT ---
Indication: CARDIOMYOPATHY CONCLUSIONS Normal left ventricular size. Wall thickness is normal. The left ventricular systolic function is low normal with an estimated ejection fraction in the rang e of 50- 55%. BP: / HR: Rhythm: MEASUREMENTS (Male / Female) Normal Values Technical Quality: 2D ECHO LV Diastolic Diameter PLAX 4.8 cm 4.2 - 5.9 / 3.9 - 5.3 cm LV Systolic Diameter PLAX 3.7 cm IVS Diastolic Thickness 1.1 cm 0.6 - 1.0 / 0.6 - 0.9 cm LVPW Diastolic Thickness 0.8 cm 0.6 - 1.0 / 0.6 - 0.9 cm LV Relative Wall Thickness 0.4 RV Internal Dim ED PLAX 2.1 cm LA Systolic Diameter LX 4.0 cm 3.0 - 4.0 / 2.7 - 3.8 cm DOPPLER Mitral E Point Velocity 103.0 cm/s Mitral A Point Velocity 76.8 cm/s Mitral E to A Ratio 1.3 TR Peak Velocity 252.0 cm/s TR Peak Gradient 25.4 mmHg Right Atrial Pressure 10.0 mmHg Pulmonary Artery Systolic Pressu 35.4 mmHg Right Ventricular Systolic Press 35.4 mmHg FINDINGS LEFT VENTRICLE Normal left ventricular size. Wall thickness is normal. The left ventricular systolic function is low normal with an estimated ejection fraction in the rang e of 50- 55%. RIGHT VENTRICLE Normal right ventricular size and systolic function. LEFT ATRIUM The left atrial size is normal. RIGHT ATRIUM The right atrial size is normal. ATRIAL SEPTUM Atrial septal bowingt (benign finding). AORTA The aortic root and proximal ascending aorta are normal in size on limited imaging. MITRAL VALVE Structurally normal mitral valve. No mitral valve stenosis or regurgitation. AORTIC VALVE Trileaflet aortic valve. No aortic valve stenosis or regurgitation. TRICUSPID VALVE Structurally normal tricuspid valve. No tricuspid valve stenosis or regurgitation. PULMONARY VALVE No pulmonary valve regurgitation or stenosis. VESSELS The inferior vena cava is normal in size. PERICARDIUM No pericardial effusion. Logan Ramos MD (Electronically Signed) Final Date:29 December 2018 11:15
[2018-12-29 12:50] LABS: Thyroid Stimulating Hormone 0.698 uIU/mL (0.358-3.740)
[2018-12-29] MEDS: Beclomethasone Dipropionate 80 MCG/ACT 10.6 GM Inhaler INH SCH ×2 (13:26→20:32)
--- NOTE | 2018-12-29 14:27 | US ---
EXAM DATE: 12/29/2018 2:18 PM EST AGE/SEX: 48 years / Female INDICATIONS: Syncope. CLINICAL DATA: This is the patient's initial encounter. Patient reports that signs and symptoms have been present for 1 day and indicates a pain score of 0/10. MEDICAL/SURGICAL HISTORY: . Hypertension. Hyperlipidemia. Hypothyroidism. Atrial fibrillatio n. Asthma. Breast cancer. Chemo and radiation therapy. Former smoker. None. COMPARISON: No prior exams available for comparison. VELOCITY PARAMETERS: ICA/CCA Ratio: Right 1.2 , Left 1.3 ICA: Right 112.3 cm/sec, Left 110.3 cm/sec CCA: Right 93.5 cm/sec, Left 86.7 cm/sec ECA: Right 75.8 cm/sec, Left 63.3 cm/sec Vertebral: Right 41.7 cm/sec antegrade, Left 55.5 cm/sec antegrade FINDINGS: Right Carotid: No significant plaque is visualized.The waveforms are within normal limits. Left Carotid: No significant plaque is visualized. The waveforms are within normal limits. Other: None. CONCLUSION: 1. Right Internal Carotid Artery: No significant stenosis or atherosclerotic plaque is visualized. 2. Left Internal Carotid Artery: No significant stenosis or atherosclerotic plaque is visualized. Electronically signed by: Dayne Sevilla MD Board Certified Radiologist 12/29/2018 2:26 PM EST
--- NOTE | 2018-12-29 18:28 | ECG ---
Date Performed: 12/29/2018 Time Performed: 00:25:44 PTAGE: 48 years EKG: Sinus rhythm WITH SINUS ARRHYTHMIA WITH FIRST DEGREE AV BLOCK MODERATE INTRAVENTRICULAR CONDUCTION DELAY MODERATE T-WAVE ABNORMALITY ABNORMAL ECG PREVIOUS TRACING : 12/28/2018 22.16 Compared to previous tracing, rate faster DOCTOR: Talib Navarro Interpretating Date/Time 12/29/2018 18:27:05
[2018-12-29] MEDS: predniSONE 20 MG Tablet PO SCH (20:31)
--- NOTE | 2018-12-29 20:54 | ECG ---
Date Performed: 12/28/2018 Time Performed: 22:16:00 PTAGE: 48 years EKG: SINUS BRADYCARDIA WITH SINUS ARRHYTHMIA MODERATE INTRAVENTRICULAR CONDUCTION DELAY MODERATE T-WAVE ABNORMALITY ABNORMAL ECG NO PREVIOUS TRACING DOCTOR: Talib Navarro Interpretating Date/Time 12/29/2018 20:52:19
[2018-12-30] MEDS: Dextrose 5% in Water Inj 1,000 ML IV.CONT SCH (00:06)
[2018-12-30] MEDS: Morphine Inj 4 MG/ML Vial IV.PUSH PRN ×2 (05:18→09:15)
[2018-12-30] MEDS: Levothyroxine 150 MCG Tablet PO SCH (05:19)
[2018-12-30 08:30] LABS: Baso % (Auto) 0.8 % (0.0-2.0); Eos % (Auto) 0.4 % (0.0-4.0); Hematocrit 38.5 % (35.0-46.0); Hemoglobin 13.1 gm/dL (11.6-15.3); Lymph # (Auto) 0.9 th/mm3 (1.0-4.8); Mean Corpuscular HGB Conc 34.1 % (32.0-36.0); Mean Corpuscular Hemoglobin 34.5 pg (27.0-34.0); Mean Platelet Volume 8.2 fL (7.0-11.0); Mono # (Auto) 0.3 th/mm3 (0.0-0.9); Mono % (Auto) 5.3 % (0.0-8.0); Neut # (Auto) 4.2 th/mm3 (1.8-7.7); Neut % (Auto) 76.5 % (16.0-70.0); Platelet Count 214 th/mm3 (150-450); Red Blood Count 3.81 mil/mm3 (4.00-5.30); Red Cell Distribution Width 14.1 % (11.6-17.2); White Blood Count 5.5 th/mm3 (4.0-11.0)
[2018-12-30 08:36] LABS: Alanine Aminotransferase 18 U/L (10-53); Albumin 3.1 g/dL (3.4-5.0); Anion Gap 8 meq/L (5-15); Aspartate Aminotransferase 19 U/L (15-37); Blood Urea Nitrogen 8 mg/dL (7-18); Calcium 8.3 mg/dL (8.5-10.1); Carbon Dioxide 23.2 meq/L (21.0-32.0); Chloride 113 meq/L (98-107); Glomerular Filtration Rate Greater Than 89 mL/min (>89); Glucose,Random 127 mg/dL (74-106); Sodium 144 meq/L (136-145)
[2018-12-30 08:37] LABS: Alkaline Phosphatase 59 U/L (45-117); Total Protein 6.3 g/dL (6.4-8.2)
[2018-12-30 08:45] VITALS: BP 133/84; TEMP 98.1; O2SAT 98
[2018-12-30] MEDS: predniSONE 20 MG Tablet PO SCH (09:15)
[2018-12-30] MEDS: QUEtiapine 25 MG Tablet PO SCH (09:15)
[2018-12-30] MEDS: Senna/Docusate Sodium 8.6/50 MG Tablet PO SCH (09:15)
[2018-12-30] MEDS: Duloxetine 60 MG DR Capsule PO SCH (09:15)
[2018-12-30] MEDS: Beclomethasone Dipropionate 80 MCG/ACT 10.6 GM Inhaler INH SCH (09:16)
--- NOTE | 2018-12-30 11:02 | P.PNIM ---
Subjective Interval history: patient in a mmore melanie mood today no complains up and ambulating discussed with her results of all work up d/w her- good gfamily support - congregation support - "get rid of the man" lungs- clear set up with a PCP here- from [place]- moving down here- she wiill call her [employer] insurance to find out how to switch here Physical Exam Vital signs: Vital Signs 12/29/18 12:00 12/29/18 12:49 12/29/18 16:00 Temperature 98.0 F Pulse Rate 58 L 53 L 60 Respiratory Rate 14 20 Blood Pressure 138/82 Pulse Oximetry 95 12/29/18 20:00 12/29/18 21:09 12/30/18 00:00 Temperature 97.9 F 97.9 F Pulse Rate 67 63 68 Respiratory Rate 15 16 17 Blood Pressure 154/98 H 112/76 Pulse Oximetry 96 96 12/30/18 04:00 12/30/18 07:00 12/30/18 08:45 Temperature 97.4 F L 98.1 F Pulse Rate 54 L 68 54 L Respiratory Rate 15 14 18 Blood Pressure 122/97 H 133/84 Pulse Oximetry 94 L 98 Intake & Output 12/29/18 12/30/18 12/30/18 18:59 06:59 18:59 Intake Total 1160 / 1160 1197 / 1197 Balance 1160 / 1160 1197 / 1197 Weight 106.4 kg Intake: IV 440 / 440 1197 / 1197 D5W Inj 1,000 ML @ 42 mls/hr IV 1197 / 1197 .CONT .[id number] CARMELA Rx#:[id number] NS Inj 1,000 ML @ 100 mls/hr IV 440 / 440 .CONT .Q10H CARMELA Rx#:[id number] Oral 720 / 720 Other: # Voids 5 6 # Bowel Movements 1 Narrative: awake ana lert, no distress anciteric neck supple lungs-clear regular rhythm abdomensoft nontender extrmeites no edema neuro- urnmarkable Results Labs CBC & Chem 7: 12/30/18 07:10 12/30/18 07:10 Imaging Imaging: Impressions Carotid Doppler Study 12/29/18 00:00 CONCLUSION: 1. Right Internal Carotid Artery: No significant stenosis or atherosclerotic plaque is visualized. 2. Left Internal Carotid Artery: No significant stenosis or atherosclerotic plaque is visualized. Assessment and Plan (1) Syncope: Code(s): R55 - Syncope and collapse Status: Acute (2) Hypocalcemia: Code(s): E83.51 - Hypocalcemia Status: Acute (3) Hypokalemia: Code(s): E87.6 - Hypokalemia Status: Acute (4) Breast CA: Code(s): C50.919 - Malignant neoplasm of unspecified site of unspecified female breast Status: Acute (5) Chest pain: Code(s): R07.9 - Chest pain, unspecified Status: Acute Plan 48 years old female patient states witnessed syncope x 2 Syncope: likely vasovagal event, - echo, carotid US, CT negative - discussed with her - avoid stress ful situations-states gfood family/congregation support- going through some marital difficulties Chest Pain: - resolved - c/o chest pain w/ radiation to back, CTA chest negative for PE, trop negative, check cardiac enzymes, analgesics/antiemetics as needed. History of hypertension History of hyperlipdemia - reporiccible on exam. EKG reviewed- no acute changes, - some psych component -continue home Sotalol, Lisnopril on discharge Hypernatremia- sresolved - endorugae po fluids Bipolar disorder - continue on her Seroquel -foud out cheating on her- denies any suicidal ideations -states good family support Hypocalcemia: advise po calcium OTC, drink sm milk daily Hypokalemia: improved Breast CA: Stage IB, s/p chemo/radiation in [place], continue home Tamoxifen. DVT Prophylaxis: SCD/Teds up and ambulate DC home today OP ff up with PCP- she will set up with one- and set up and FF up with an Oncology down here Progress Note: Quality VTE Deep Vein Thrombosis/Pulmonary Embolism Present on Admission: No
[2018-12-30 11:26] VITALS: PULSE 63; RESP 14
--- NOTE | 2018-12-31 01:38 | MG ---
cc: Guillermo Woodall MD REFERRING PHYSICIAN: Dr. Ku. MEDICAL HISTORY: Atrial fibrillation, asthma, breast cancer, current marijuana use for anxiety. Former smoker, hypothyroidism, hypertension, hyperlipidemia, chemoradiation therapy. MEDICATIONS: 1. Cymbalta. 2. Synthroid. 3. Morphine. 4. Seroquel 5. Pravachol. 6. Betapace. 7. Toradol. 8. KCl. DESCRIPTION: Background rhythm is 10-11 Hz alpha located posteriorly, attenuates to eye opening with posterior to anterior gradient. There is electrode artifact in the left hemisphere at T3 and C3. There were no electrographic seizures or epileptiform discharges noted. Hyperventilation was omitted. Photic stimulation did not elicit . INTERPRETATION: This is a normal awake EEG. Absence of electrographic seizures or epileptiform discharges does not exclude diagnosis of epilepsy. Clinical correlation is recommended. Guillermo Woodall MD RGO/sv/do , 12:36 AM , 12:40 AM
== END 2018-12-30 11:59 | disposition home or self-care (01) | DRG 312 ==
LOC: NEPD 21:54 → NEDA 12-29 00:44 → N04 12-29 03:05
PROVIDERS: ADMIT Internal Medicine; ATTEND Internal Medicine
DX: Z92.21 Personal history of antineoplastic chemotherapy; E78.5 Hyperlipidemia, unspecified; E03.9 Hypothyroidism, unspecified; R07.89 Other chest pain; E87.0 Hyperosmolality and hypernatremia; F12.90 Cannabis use, unspecified, uncomplicated; Z92.3 Personal history of irradiation; Z87.891 Personal history of nicotine dependence; E83.51 Hypocalcemia; F31.9 Bipolar disorder, unspecified; I10 Essential (primary) hypertension; E87.6 Hypokalemia; R55 Syncope and collapse; R40.2412 Glasgow coma scale score 13-15, at arrival to emergency department; C50.919 Malignant neoplasm of unspecified site of unspecified female breast
CPT/HCPCS: 70450; 71275; 80048; 80053; 80307; 81001; 82040; 83735; 84443; 84484; 85025; 90761; 90765; 93005; 93306; 93880; 94640; 94664; 94665; 95819; 96361; 96365; 99285; J0610; J1885; J2270; J7030; J7070; J7506; J7512; Q9967